=== PATIENT | male | born 1950 | race Caucasian/White ===

== ENCOUNTER 2017-07-04 08:10 | Day surgery (SDC) | payer OTHER, BC ==
[2017-07-03 17:02] VITALS: BMI 24.6
[2017-07-04] MEDS ORDERED: PROPOFOL 20 ML ONE ×2 (08:25)
[2017-07-04] MEDS ORDERED: LIDOCAINE HCL/PF 2% SDV 5ML VIAL ONE (08:26)
[2017-07-04 10:32] VITALS: TEMP 97.6
[2017-07-04 11:25] VITALS: BP 112/64; PULSE 68
--- NOTE | 2017-07-09 19:02 | PATH ---
Surgical Pathology Report Patient Name: RIGOBERTO BARRETT [facility]. Rec. #: [id number] /Age/Gender: 1950 (Age: 67) / M Account: [id number] Location: [facility]ENDOS[facility] Taken: 07/04/2017 Received: 07/04/2017 Reported: 07/09/2017 Physicians: Wang Brewer M.D. Specimen(s) Received A: BX RIGHT COLON B: BX LEFT COLON Clinical History Preoperative diagnosis: History of polyps Postoperative diagnosis: Polyp Final Diagnosis A. RIGHT COLON, BIOPSY: TUBULAR ADENOMA. B. LEFT COLON, BIOPSY: TUBULAR ADENOMA. Electronically Signed Valentina Almaguer M.D. Gross Description A. Received in formalin, labeled "right colon" is a matthews, irregular portion of soft tissue measuring 0.3 cm. in greatest dimension. The specimen is submitted in toto in one cassette. B. Received in formalin, labeled "left colon" is a matthews, irregular portion of soft tissue measuring 0.5 cm. in greatest dimension. The specimen is submitted in toto in one cassette. 07/04/2017 [facility]07/04/2017
== END 2017-07-04 11:20 | disposition home or self-care (01) ==
LOC: FASU-ENDO 08:10
PROVIDERS: ATTEND Internal Medicine Gastroenterology
PROC: 0DBK8ZX Excision of Ascending Colon, Via Natural or Artificial Opening Endoscopic, Diagnostic (ICD-10-PCS; principal; 2017-07-04 10:00)
PROC: 0DBM8ZX Excision of Descending Colon, Via Natural or Artificial Opening Endoscopic, Diagnostic (ICD-10-PCS; 2017-07-04 10:00)
DX: Z12.11 Encounter for screening for malignant neoplasm of colon (principal); Z86.010 Personal history of colon polyps; Z80.0 Family history of malignant neoplasm of digestive organs; Z83.71 Family history of colonic polyps; D12.2 Benign neoplasm of ascending colon; D12.4 Benign neoplasm of descending colon; K63.5 Polyp of colon
CPT/HCPCS: 88305-TC

== ENCOUNTER 2020-09-21 07:19 | Day surgery (SDC) | payer OTHER, BC ==
[2020-09-16 09:28] VITALS: BMI 22.8
[2020-09-21 07:58] VITALS: TEMP 98.1
[2020-09-21] MEDS ORDERED: LIDOCAINE HCL/PF 2% SDV 5ML VIAL ONE (07:58)
[2020-09-21] MEDS ORDERED: PROPOFOL 20 ML ONE ×3 (07:59)
[2020-09-21 09:36] VITALS: BP 108/68
[2020-09-21 09:37] VITALS: PULSE 61
== END 2020-09-21 10:00 | disposition home or self-care (01) ==
LOC: FASU-ENDO 07:19
PROVIDERS: ATTEND Internal Medicine Gastroenterology
PROC: 0DJD8ZZ Inspection of Lower Intestinal Tract, Via Natural or Artificial Opening Endoscopic (ICD-10-PCS; principal; 2020-09-21 08:25)
DX: Z12.11 Encounter for screening for malignant neoplasm of colon (principal); Z86.010 Personal history of colon polyps; Z80.0 Family history of malignant neoplasm of digestive organs